=== PATIENT | female | born 1950 | race Two or more races ===

== ENCOUNTER 2022-08-29 12:02 | Emergency (ER) | payer MEDICARE, BC ==
[~2022-08-29] VITALS: Ht 152.4 cm; Wt 54.4 kg
--- NOTE | 2022-08-29 12:23 | NUR ---
[email or web address], medical screening exam in progress
[2022-08-29] MEDS ORDERED: TRANEXAMIC ACID 1,000 MG/10 ML VIAL IR ONE (12:30)
[2022-08-29] MEDS ORDERED: TRANEXAMIC ACID 1,000 MG/10 ML VIAL ONE (12:31)
[2022-08-29 12:57] LABS: MEAN CORPUSCULAR HEMOGLOBIN 27.8 uug (24.7-32.8); MEAN CORPUSCULAR VOLUME 86.4 fL (75.5-95.3); PLATELET COUNT (AUTO) 256 K/uL (179-408)
--- NOTE | 2022-08-29 13:19 | NUR ---
Patient is resting comfortably on gurney with pressure dressing of medicated gauze inside her mouth. Patient is being observed for further gum bleeding.
[2022-08-29] MEDS ORDERED: THROMBIN (BOVINE) 5,000 UNITS VIAL TP ONE (13:30)
[2022-08-29] MEDS ORDERED: THROMBIN (BOVINE) 5,000 UNITS VIAL ONE (13:33)
[2022-08-29] MEDS ORDERED: LIDOCAINE 1%-EPI 1:100,000 20 ML VIAL ONE (14:33)
[2022-08-29] MEDS ORDERED: LIDOCAINE 1%-EPI 1:100,000 20 ML VIAL IJ ONE (14:45)
--- NOTE | 2022-08-29 15:30 | NUR ---
Patient wants to leave ER now despite mild oozing of blood seen in the gum pocket. This is after the administration of Trandate, Thrombin and lidocaine with epinephrine by our MD. Patient discharged to home in stable condition. Written and verbal after care instructions given to patient and family. Patient and family verbalized understanding and compliance of instructions. Stressed follow up with oral surgeon and primary doctor or return to ER for worsening s/s.
[2022-08-29 16:13] VITALS: BP 149/74
== END 2022-08-29 15:32 | disposition home or self-care (01) ==
LOC: ER 12:02
DX: K91.840 Postprocedural hemorrhage of a digestive system organ or structure following a digestive system procedure (principal); E78.5 Hyperlipidemia, unspecified; Z95.5 Presence of coronary angioplasty implant and graft; Z86.73 Personal history of transient ischemic attack (TIA), and cerebral infarction without residual deficits; I25.10 Atherosclerotic heart disease of native coronary artery without angina pectoris; Z79.02 Long term (current) use of antithrombotics/antiplatelets
CPT/HCPCS: 99284; 85025; 36415; J3490; A4663